=== PATIENT | male | born 1960 | race Caucasian/White ===

== ENCOUNTER 2018-08-09 17:27 | Emergency (ER) | payer SELFPAY ==
[2018-08-09 17:30] VITALS: BP 122/80; PULSE 95; RESP 16; TEMP 37.1; O2SAT 97
--- NOTE | 2018-08-09 17:38 | W.ED.GENAD ---
Discharge Plan Disposition Patient Disposition: HOME Condition: Stable Discharge Details Chief Complaint: Abd Prob Clinical Impression: Diverticulitis Primary Care Provider: Noam Chery ED Provider: Veronica Mahmood Home Meds and New Rx's Prescriptions: New metronidazole 500 mg tablet 500 mg PO TID Qty: 20 RF: 0 ciprofloxacin HCl [Cipro] 500 mg tablet 500 mg PO BID Qty: 14 RF: 0 Discharge Instructions Instructions: Ciprofloxacin (By mouth), Metronidazole (By mouth), Diverticulitis (ED) Additional Instructions: Encourage hydration. Continue Tylenol and/or ibuprofen as needed for discomfort. Please take antibiotics as prescribed, even if symptoms improve please take the entire course. You will need follow-up with your primary care this week for reevaluation. Present if you develop increased pain, fever/chills, eminence dehydrated or other new/worsening symptoms please seek care urgently once again. Referrals: Noam Chery [Primary Care Provider] - Medical Decision Making Patient is a 58-year-old male no significant past medical history and no previous surgeries, presenting today with chief complaint of recurrent left lower quadrant pain. He reports that he has had this on previous occasions and typically last for a few days. However, this time seems to be more painful. States that last night he was feeling febrile with chills. Denies any nausea or vomiting but endorses diminished appetite. No radiation of the pain. States the pain can wax and wane. Try to eat something today and reports that this caused increased pain. Has not had bowel movement today. Denies any hematuria. No pain in his testicles. No pain in his back. Denies any dysuria. Plan to obtain CT, laboratory evaluation. I advised this is most consistent with diverticulitis may also be a presentation of appendicitis or other abdominal etiology. Patient is declining any narcotics we will give oral Tylenol. HeAleve at home prior ot arrival with no improvement in symptoms. Labs without significant abnormality. CT reviewed by radiologist: FINDINGS: Lungs: Patchy atelectasis in the lung bases. Heart: Heart size normal. ABDOMEN: Liver: Normal size and contour. No mass lesions. Gallbladder and bile ducts: Normal. No calcified stones. No ductal dilation. Pancreas: Normal. No inflammatory changes or ductal dilation. Spleen: Normal. No splenomegaly. Adrenals: Normal. No adrenal mass. Kidneys and ureters: Normal. No hydronephrosis or hydroureter. No urinary tract stones are identified. Stomach and bowel: The visualized distal esophagus and stomach are normal. The small bowel is normal with no evidence of obstruction. There is moderate wall thickening and surrounding inflammatory stranding in the proximal sigmoid colon with moderate associated diverticulosis in this segment. The findings are consistent with acute diverticulitis, with an inflamed diverticulum along the superior margin of the segment on coronal image 38. No evidence of free intraperitoneal perforation or abscess. Appendix: The appendix is not identified. No secondary signs of appendicitis. PELVIS: Bladder: Unremarkable as visualized. Reproductive: Large prostate measuring 5.9 cm transverse. ABDOMEN and PELVIS: Intraperitoneal space: No free fluid or air. Bones/joints: No acute osseous abnormalities. Soft tissues: No gross soft tissue abnormalities. Vasculature: Mild atherosclerotic aortoiliac calcification without aneurysm. Lymph nodes: No adenopathy. IMPRESSION: 1. Acute diverticulitis involving the proximal sigmoid colon. No evidence of associated bowel perforation or abscess. 2. Underlying moderate sigmoid diverticulosis. Discussed the findings the patient appears to be please include ciprofloxacin and metronidazole. As the patient is afebrile, stable vital signs no signs of sepsis or complications associated with his diverticulitis, plan to treat as an outpatient. Advised is no need prompt follow-up with his primary care. He was given strict return precautions. Encourage hydration. He declines any further analgesics. All of his questions and concerns were addressed and he is in agreement this plan. We discussed the risks associated with the medications prescribing, in particular the ciprofloxacin. He was given education on prescribed medications. [facility] General Mode of arrival: ambulatory. Date/Time Provider Initiated Documentation: 08/09/18 17:38. Limitations to Documentation: no limitations. Information obtained by: patient, family (accompanied by who is a nurse here) and RN notes reviewed. History of Present Illness 58 year old M presents to the emergency department with the chief complaint of LLQ pain, described as moderate, with intensity rated at 4. Quality is described as aching, and is localized to the abdomen. Patient reports no radiation. Patient started experiencing this day(s) (1) and it has been constant. No relieving factors improve symptom(s), Eating worsens symptoms . Patient notes diaphoresis, fever/chills (felt warm last night) and loss of appetite; denies chest pain, cough, nausea/vomiting and shortness of breath. Patient did receive the following treatments prior to arrival, NSAID Related Data Home Medications Medication Instructions Recorded Confirmed ciprofloxacin HCl [Cipro] 500 mg PO BID #14 tab 08/09/18 metronidazole 500 mg PO TID #20 tab 08/09/18 Previous Rx's Medication Instructions Recorded ciprofloxacin HCl [Cipro] 500 mg PO BID #14 tab 08/09/18 metronidazole 500 mg PO TID #20 tab 08/09/18 Allergies Allergy/AdvReac Type Severity Reaction Status Date / Time lactose AdvReac Unknown Unverified 08/09/18 17:43 General Stated Complaint: Abd Prob RICCARDO: 3 Review of Systems Constitutional Reports as per HPI, Reports chills, Denies fatigue, Reports fever(s), Denies headache(s) and Reports poor appetite ENT Denies headache(s) Cardiovascular Reports as per HPI, Denies chest pain and Denies dyspnea Respiratory Reports as per HPI, Denies cough and Denies dyspnea Gastrointestinal Reports as per HPI Genitourinary Denies system reviewed and no additional complaints, except as docu (patient denies any change in urinary habits), Denies difficulty urinating, Denies genital pain, Denies dysuria, Denies flank pain, Denies scrotal swelling, Denies testicular mass and Denies testicular pain Musculoskeletal Reports as per HPI and Denies back pain Integumentary/Breasts Reports as per HPI and Denies rash Neurologic Reports as per HPI and Denies headache(s) Endocrine Denies fatigue [facility] Social History Smoking/Tobacco Use Status: Never Drug use: Rarely Substance use type: marijuana Do you feel safe at home: Yes Do you feel safe in your relationship?: Yes Exam Const General: cooperative, healthy appearing, comfortable, no acute distress and well developed Nutritional Appearance: average body habitus and well nourished Orientation: alert and awake HENOK Head: normal to inspection Mouth: moist mucous membranes Resp Effort & Inspection: normal respiratory effort, able to speak in complete sentences and no respiratory distress Auscultation: clear to auscultation bilaterally, no rales, no rhonchi and no wheezes Cardio Rate: regular rate Rhythm: regular rhythm Heart Sounds: S1 normal and S2 normal GI Inspection: normal to inspection, no edema, non-distended, no incisions and no visible herniation Palpation: soft, no hepatosplenomegaly, not firm, guarding in the LLQ, no hepatosplenomegaly, no hernias, no masses, not rigid and tender in the LLQ; obturator sign negative, psoas sign negative and with no rebound tenderness Percussion: normal to percussion Auscultation: normal bowel sounds Back/Spine/Pelvis Back: no CVA tenderness Skin General skin exam: no rashes or lesions noted Trauma: no lacerations or abrasions Neuro General: alert and awake Cognition: normal cognition Speech: speech normal Gait: normal gait Psych Appearance: grossly normal and well kempt Mental Status: mental status grossly normal Speech and Movement: speech and movement normal Course Vital Signs Temperature 37.1 C 08/09/18 17:30 Pulse 95 H 08/09/18 17:30 Respiratory Rate 16 08/09/18 17:30 Blood Pressure 122/80 08/09/18 17:30 Pulse Oximetry 97 08/09/18 17:30 Temperature 37.1 C 08/09/18 17:30 Temperature Source Skin 08/09/18 17:30 Pulse 95 H 08/09/18 17:30 Respiratory Rate 16 08/09/18 17:30 Blood Pressure 122/80 08/09/18 17:30 Blood Pressure Position Sitting 08/09/18 17:30 Pulse Oximetry 97 08/09/18 17:30 Oxygen Delivery Method Room Air 08/09/18 17:30 Oxygen Flow Rate 0 08/09/18 17:30 Pain Level 4 08/09/18 17:30 Comment mirilax at 1530 08/09/18 17:30
--- NOTE | 2018-08-09 17:49 | DI.CT_ITS ---
SYMPTOM/DIAGNOSIS: LLQ PAIN ABDOMEN AND PELVIC CT: CT scan of the abdomen and pelvis was performed following the uneventful administration of intravenous contrast material. There is atelectasis seen in the lung bases. The liver is normal in size. No suspicious hepatic mass is seen. The portal, superior mesenteric and splenic veins are patent. The gallbladder is negative. There is no biliary ductal dilatation. The pancreas, spleen and adrenal glands are unremarkable as are the kidneys, ureters and bladder. The prostate gland appears to be enlarged. There is bowel wall thickening seen in the sigmoid colon. There are diverticula seen in the descending and sigmoid colon. The findings are suspicious for acute diverticulitis. There is pericolonic inflammatory stranding. No focal fluid collection or free air is seen to suggest abscess. There is a trace amount of free fluid in the pelvis. The remainder of the bowel is unremarkable. No findings to suggest an acute appendicitis are present. No significant abdominal or pelvic adenopathy is seen. There is mild atherosclerosis of the abdominal aorta but no aneurysmal dilatation. No acute osseous abnormality is identified. IMPRESSION: Findings consistent with acute diverticulitis involving the sigmoid colon. No evidence of abscess or free air.
[2018-08-09] MEDS: Normal Saline Flush 10 ML SYR IVP (17:50)
[2018-08-09] MEDS: Acetaminophen 500 MG TAB 1000 MG PO (17:53)
[2018-08-09] MEDS: Normal Saline 1,000 ML 1000 ML IV (17:54)
--- NOTE | 2018-08-09 17:56 | ED.GENADUL_ITS ---
Discharge Plan Disposition Patient Disposition: HOME Condition: Stable Discharge Details Chief Complaint: Abd Prob Clinical Impression: Diverticulitis Primary Care Provider: Noam Chery ED Provider: Veronica Mahmood Home Meds and New Rx's Prescriptions: New metronidazole 500 mg tablet 500 mg PO TID Qty: 20 RF: 0 ciprofloxacin HCl [Cipro] 500 mg tablet 500 mg PO BID Qty: 14 RF: 0 Discharge Instructions Instructions: Ciprofloxacin (By mouth), Metronidazole (By mouth), Diverticulitis (ED) Additional Instructions: Encourage hydration. Continue Tylenol and/or ibuprofen as needed for discomfort. Please take antibiotics as prescribed, even if symptoms improve please take the entire course. You will need follow-up with your primary care this week for reevaluation. Present if you develop increased pain, fever/chills, eminence dehydrated or other new/worsening symptoms please seek care urgently once again. Referrals: Noam Chery [Primary Care Provider] - Medical Decision Making Patient is a 58-year-old male no significant past medical history and no previous surgeries, presenting today with chief complaint of recurrent left lower quadrant pain. He reports that he has had this on previous occasions and typically last for a few days. However, this time seems to be more painful. States that last night he was feeling febrile with chills. Denies any nausea or vomiting but endorses diminished appetite. No radiation of the pain. States the pain can wax and wane. Try to eat something today and reports that this caused increased pain. Has not had bowel movement today. Denies any hematuria. No pain in his testicles. No pain in his back. Denies any dysuria. Plan to obtain CT, laboratory evaluation. I advised this is most consistent with diverticulitis may also be a presentation of appendicitis or other abdominal etiology. Patient is declining any narcotics we will give oral Tylenol. HeAleve at home prior ot arrival with no improvement in symptoms. Labs without significant abnormality. CT reviewed by radiologist: FINDINGS: Lungs: Patchy atelectasis in the lung bases. Heart: Heart size normal. ABDOMEN: Liver: Normal size and contour. No mass lesions. Gallbladder and bile ducts: Normal. No calcified stones. No ductal dilation. Pancreas: Normal. No inflammatory changes or ductal dilation. Spleen: Normal. No splenomegaly. Adrenals: Normal. No adrenal mass. Kidneys and ureters: Normal. No hydronephrosis or hydroureter. No urinary tract stones are identified. Stomach and bowel: The visualized distal esophagus and stomach are normal. The small bowel is normal with no evidence of obstruction. There is moderate wall thickening and surrounding inflammatory stranding in the proximal sigmoid colon with moderate associated diverticulosis in this segment. The findings are consistent with acute diverticulitis, with an inflamed diverticulum along the superior margin of the segment on coronal image 38. No evidence of free intraperitoneal perforation or abscess. Appendix: The appendix is not identified. No secondary signs of appendicitis. PELVIS: Bladder: Unremarkable as visualized. Reproductive: Large prostate measuring 5.9 cm transverse. ABDOMEN and PELVIS: Intraperitoneal space: No free fluid or air. Bones/joints: No acute osseous abnormalities. Soft tissues: No gross soft tissue abnormalities. Vasculature: Mild atherosclerotic aortoiliac calcification without aneurysm. Lymph nodes: No adenopathy. IMPRESSION: 1. Acute diverticulitis involving the proximal sigmoid colon. No evidence of associated bowel perforation or abscess. 2. Underlying moderate sigmoid diverticulosis. Discussed the findings the patient appears to be please include ciprofloxacin and metronidazole. As the patient is afebrile, stable vital signs no signs of sepsis or complications associated with his diverticulitis, plan to treat as an outpatient. Advised is no need prompt follow-up with his primary care. He was given strict return precautions. Encourage hydration. He declines any further analgesics. All of his questions and concerns were addressed and he is in agreement this plan. We discussed the risks associated with the medications prescribing, in particular the ciprofloxacin. He was given education on prescribed medications. [facility] General Mode of arrival: ambulatory . Date/Time Provider Initiated Documentation: 08/09/18 17:38 . Limitations to Documentation: no limitations . Information obtained by: patient, family (accompanied by who is a nurse here) and RN notes reviewed . History of Present Illness 58 year old M presents to the emergency department with the chief complaint of LLQ pain, described as moderate, with intensity rated at 4. Quality is described as aching, and is localized to the abdomen. Patient reports no radiation. Patient started experiencing this day(s) (1) and it has been constant. No relieving factors improve symptom(s), Eating worsens symptoms . Patient notes diaphoresis, fever/chills (felt warm last night) and loss of appetite; de nies chest pain, cough, nausea/vomiting and shortness of breath. Patient did receive the following treatments prior to arrival, NSAID Related Data Home Medications Medication Instructions Recorded Confirmed ciprofloxacin HCl [Cipro] 500 mg PO BID #14 tab 08/09/18 metronidazole 500 mg PO TID #20 tab 08/09/18 Previous Rx's Medication Instructions Recorded ciprofloxacin HCl [Cipro] 500 mg PO BID #14 tab 08/09/18 metronidazole 500 mg PO TID #20 tab 08/09/18 Allergies Allergy/AdvReac Type Severity Reaction Status Date / Time lactose AdvReac Unknown Unverified 08/09/18 17:43 General Stated Complaint: Abd Prob RICCARDO: 3 Review of Systems Constitutional Reports as per HPI, Reports chills, Denies fatigue, Reports fever(s), Denies headache(s) and Reports poor appetite ENT Denies headache(s) Cardiovascular Reports as per HPI, Denies chest pain and Denies dyspnea Respiratory Reports as per HPI, Denies cough and Denies dyspnea Gastrointestinal Reports as per HPI Genitourinary Denies system reviewed and no additional complaints, except as docu (patient denies any change in urinary habits), Denies difficulty urinating, Denies genital pain, Denies dysuria, Denies flank pain, Denies scrotal swelling, Denies testicular mass and Denies testicular pain Musculoskeletal Reports as per HPI and Denies back pain Integumentary/Breasts Reports as per HPI and Denies rash Neurologic Reports as per HPI and Denies headache(s) Endocrine Denies fatigue [facility] Social History Smoking/Tobacco Use Status: Never Drug use: Rarely Substance use type: marijuana Do you feel safe at home: Yes Do you feel safe in your relationship?: Yes Exam Const General: cooperative, healthy appearing, comfortable, no acute distress and well developed Nutritional Appearance: average body habitus and well nourished Orientation: alert and awake HENSD Head: normal to inspection Mouth: moist mucous membranes Resp Effort & Inspection: normal respiratory effort, able to speak in complete sentences and no respiratory distress Auscultation: clear to auscultation bilaterally, no rales, no rhonchi and no wheezes Cardio Rate: regular rate Rhythm: regular rhythm Heart Sounds: S1 normal and S2 normal GI Inspection: normal to inspection, no edema, non-distended, no incisions and no visible herniation Palpation: soft, no hepatosplenomegaly, not firm, guarding in the LLQ, no hepatosplenomegaly, no hernias, no masses, not rigid and tender in the LLQ; obturator sign negative, psoas sign negative and with no rebound tenderness Percussion: normal to percussion Auscultation: normal bowel sounds Back/Spine/Pelvis Back: no CVA tenderness Skin General skin exam: no rashes or lesions noted Trauma: no lacerations or abrasions Neuro General: alert and awake Cognition: normal cognition Speech: speech normal Gait: normal gait Psych Appearance: grossly normal and well kempt Mental Status: mental status grossly normal Speech and Movement: speech and movement normal Course Vital Signs Temperature 37.1 C 08/09/18 17:30 Pulse 95 H 08/09/18 17:30 Respiratory Rate 16 08/09/18 17:30 Blood Pressure 122/80 08/09/18 17:30 Pulse Oximetry 97 08/09/18 17:30 Temperature 37.1 C 08/09/18 17:30 Temperature Source Skin 08/09/18 17:30 Pulse 95 H 08/09/18 17:30 Respiratory Rate 16 08/09/18 17:30 Blood Pressure 122/80 08/09/18 17:30 Blood Pressure Position Sitting 08/09/18 17:30 Pulse Oximetry 97 08/09/18 17:30 Oxygen Delivery Method Room Air 08/09/18 17:30 Oxygen Flow Rate 0 08/09/18 17:30 Pain Level 4 08/09/18 17:30 Comment mirilax at 1530 08/09/18 17:30
[2018-08-09 18:04] LABS: Abs Immature Grans 0.02 k/cumm (0.0-0.09); Absolute Basophil Count 0.01 k/cumm (0.0-0.2); Absolute Eosinophil Count 0.03 k/cumm (0.0-0.7); Absolute Lymphocyte Count 1.27 k/cumm (1.2-3.4); Absolute Monocyte Count 1.08 k/cumm (0.11-0.7); Absolute Neutrophil Count 6.79 k/cumm (1.2-6.7); Basophils % 0.1; Eosinophils % 0.3; HCT 39.8 % (40.0-50.0); HGB 13.6 g/dL (13.5-17.5); Immature Grans % 0.2; Lymphocytes % 13.8; Mean Corp. HGB Concentration 34.2 g/dL (32.0-36.0); Mean Corpuscular Hemoglobin 29.6 pg (27.0-33.0); Mean Corpuscular Volume 86.5 fL (80-95); Mean Platelet Volume 10.3 fL (8.0-11.0); Monocytes % 11.7; Neutrophils % 73.9; Platelet Count 154 x1000/uL (130-400); RBC Distribution Width 13.5 % (11.8-14.1)
[2018-08-09 18:05] LABS: Bilirubin Small (Negative); Blood Trace-intact (Negative); Clarity Clear; Glucose Negative (Negative); Ketones 15 mg/dL (Negative); Leukocyte Esterase Negative (Negative); Nitrite Negative (Negative); Specific Gravity 1.015 (1.005-1.025); Urobilinogen 0.2 EU/dL (Up TO 0.2)
[2018-08-09 18:18] LABS: ALT 35 U/L (12-78); AST 21 U/L (15-37); Albumin 3.5 g/dL (3.4-5.0); Alkaline Phosphatase 78 U/L (46-116); Anion Gap 6.5 mmol/L (3-11); BUN 19 mg/dL (7-18); Bilirubin, Total 1.1 mg/dL (0.2-1.0); CO2 29.5 mmol/L (21.0-32.0); CREATININE 1.12 mg/dL (0.70-1.30); Calcium 8.4 mg/dL (8.5-10.1); Chloride 101 mmol/L (98-107); Glucose 104 mg/dL (70-100); Magnesium 2.1 mg/dL (1.8-2.4); Potassium 3.8 mmol/L (3.5-5.1); Sodium 137 mmol/L (136-145)
[2018-08-09 18:23] LABS: Troponin I < 0.02 ng/mL (0.00-0.06)
[2018-08-09 18:26] LABS: Bacteria Few HPF (Negative); C & S Indicated? No; Casts Negative LPF (Negative); Crystals Negative HPF (Negative); Epithelial Cells Rare HPF (Negative); Mucus Moderate (Negative); Other Cells Negative (Negative); WBC 0-2 HPF (0-5)
[2018-08-09] MEDS: Omnipaque 350 MG/ML 100 ML BTL IJ (18:52)
[2018-08-09 18:53] VITALS: TEMP 37.9
--- NOTE | 2018-08-09 19:18 | DI.VRAD_ITS ---
EXAM: CT Abdomen and Pelvis With Contrast EXAM DATE/TIME: 08/09/2018 5:50 PM CLINICAL HISTORY: 58 years old, male; Abdominal pain TECHNIQUE: Imaging protocol: Axial computed tomography images of the abdomen and pelvis with intravenous contrast. Coronal and sagittal reformatted images were created and reviewed. COMPARISON: No relevant prior studies available. FINDINGS: Lungs: Patchy atelectasis in the lung bases. Heart: Heart size normal. ABDOMEN: Liver: Normal size and contour. No mass lesions. Gallbladder and bile ducts: Normal. No calcified stones. No ductal dilation. Pancreas: Normal. No inflammatory changes or ductal dilation. Spleen: Normal. No splenomegaly. Adrenals: Normal. No adrenal mass. Kidneys and ureters: Normal. No hydronephrosis or hydroureter. No urinary tract stones are identified. Stomach and bowel: The visualized distal esophagus and stomach are normal. The small bowel is normal with no evidence of obstruction. There is moderate wall thickening and surrounding inflammatory stranding in the proximal sigmoid colon with moderate associated diverticulosis in this segment. The findings are consistent with acute diverticulitis, with an inflamed diverticulum along the superior margin of the segment on coronal image 38. No evidence of free intraperitoneal perforation or abscess. Appendix: The appendix is not identified. No secondary signs of appendicitis. PELVIS: Bladder: Unremarkable as visualized. Reproductive: Large prostate measuring 5.9 cm transverse. ABDOMEN and PELVIS: Intraperitoneal space: No free fluid or air. Bones/joints: No acute osseous abnormalities. Soft tissues: No gross soft tissue abnormalities. Vasculature: Mild atherosclerotic aortoiliac calcification without aneurysm. Lymph nodes: No adenopathy. IMPRESSION: 1. Acute diverticulitis involving the proximal sigmoid colon. No evidence of associated bowel perforation or abscess. 2. Underlying moderate sigmoid diverticulosis. 3. Large prostate. Dictated and Authenticated by: Roni Lowry MD. Ordering:JACKIE Martin MD
[2018-08-09 19:51] VITALS: BP 100/63; PULSE 83; RESP 14; TEMP 37.9; O2SAT 94
[2018-08-09] MEDS: Ciprofloxacin 500 MG TAB (20:02)
[2018-08-09] MEDS: metroNIDAZOLE 500 MG TAB PO ×2 (20:02→20:03)
[2018-08-09] MEDS: Ciprofloxacin 500 MG TAB PO (20:03)
== END 2018-08-09 20:14 | disposition home or self-care (01) ==
PROVIDERS: Emergency Provider Physician Assistant; PCP Family Medicine
DX: K57.32 Diverticulitis of large intestine without perforation or abscess without bleeding (principal)
CPT/HCPCS: 36415; 80053; 96360; 99285; 74177; 81003; 81015; 83735; 84484; 85025; 99284; J3490